=== PATIENT | male | born 1990 | race Two or more races ===

== ENCOUNTER 2024-05-13 09:26 | Emergency (ER) | payer SELFPAY ==
[2024-05-13 10:01] LABS: APPEARANCE,URINE CLEAR; BILIRUBIN,URINE NEGATIVE (NEGATIVE); COLOR,URINE YELLOW; GLUCOSE,URINE >=1000 mg/dL (NEGATIVE); KETONES,URINE TRACE mg/dL (NEGATIVE); LEUKOCYTE ESTERASE,URINE NEGATIVE (NEGATIVE); NITRITE,URINE NEGATIVE (NEGATIVE); OCCULT BLOOD,URINE NEGATIVE (NEGATIVE); PROTEIN,URINE NEGATIVE (NEGATIVE); UROBILINOGEN,URINE 0.2 EU/dL (<2.0)
[2024-05-13 10:01] LABS: BASOPHILS ABSOLUTE AUTO 0.04 K/uL (0.00-0.20); BASOPHILS PERCENT AUTO 0.8 % (0.0-1.0); EOSINOPHILS PERCENT AUTO 1.9 % (0.0-6.0); HEMOGLOBIN 16.2 g/dL (14.0-18.0); IMMATURE GRAN ABSOLUTE AUTO 0.01 K/uL (0.00-0.05); IMMATURE GRAN PERCENT AUTO 0.2 % (0.0-0.4); LYMPHOCYTES ABSOLUTE AUTO 1.48 K/uL (1.00-4.80); LYMPHOCYTES PERCENT AUTO 28.7 % (24.0-44.0); MEAN CORPUSCULAR HEMOGLOBIN 25.1 pg (28.0-32.0); MEAN CORPUSCULAR HGB CONC 33.8 g/dL (32.0-36.0); MEAN CORPUSCULAR VOLUME 74.4 fL (83.0-99.0); MONOCYTES ABSOLUTE AUTO 0.32 K/uL (0.00-0.80); MONOCYTES PERCENT AUTO 6.2 % (0.0-8.0); NEUTROPHILS PERCENT AUTO 62.2 % (41.0-71.0); PLATELET COUNT,PLT 218 K/uL (150-400); RED BLOOD CELL COUNT 6.45 M/uL (4.52-5.90); WHITE BLOOD CELL COUNT,WBC 5.15 K/uL (3.9-11.3)
[2024-05-13] MEDS: Sodium Chloride 0.9% 1,000 ML IV ONE (10:04)
[2024-05-13] MEDS: Sodium Chloride 0.9% 10 ML Syringe FLUSH PRN (10:05)
[2024-05-13] MEDS: Sodium Chloride 0.9% 2.5 ML Syringe FLUSH PRN (10:05)
[2024-05-13 10:23] LABS: A/G RATIO 1.3 (0.9-1.6); ALBUMIN 4.4 g/dL (3.4-5.0); BILIRUBIN TOTAL 0.6 mg/dL (0.2-1.0); CALCIUM 9.4 mg/dL (8.5-10.1); CARBON DIOXIDE,CO2 29.9 mmol/L (21.0-32.0); CREATININE 1.1 mg/dL (0.8-1.3); EST CRCL DRUG DOSING (CG) 105.93 mL/min; POTASSIUM,K 4.8 mmol/L (3.5-5.1); PROTEIN TOTAL,TP 7.8 g/dL (6.4-8.2)
[2024-05-13] MEDS ORDERED: Glucagon,Human Recombinant 1 MG Vial IM PRN (10:30)
[2024-05-13] MEDS ORDERED: 50% Dextrose in Water 50 ML Syringe IVPUSH PRN (10:30)
[2024-05-13] MEDS: Insulin Regular, Human 100 Units/ML 10 ML Vial SUBCUT ONE (10:43)
[2024-05-13 11:20] LABS: BICARBONATE,ARTERIAL 23 mEq/L (22-26); PCO2 ARTERIAL 41 mmHG (35-45); PO2 ARTERIAL 84 mmHG (80-105)
[2024-05-13 11:41] VITALS: BP 117/69; PULSE 78
== END 2024-05-13 11:40 | disposition home or self-care (01) ==
LOC: MW.ED 09:26
DX: E11.65 Type 2 diabetes mellitus with hyperglycemia (principal); Z75.8 Other problems related to medical facilities and other health care
CPT/HCPCS: 36415; 36600; 80053; 81003; 82009; 82803; 82947; 85025; 96360; 99284; J7030; J1815-GY; J3490